=== PATIENT | male | born 1960 | race Caucasian/White ===

== ENCOUNTER 2018-12-31 14:01 | Emergency (ER) | payer SELFPAY ==
--- NOTE | 2018-12-31 14:59 | RAD ---
3 VIEWS LEFT ANKLE: Date: 12/31/18 HISTORY: Fall. Pain. COMPARISON: None. FINDINGS: Age-indeterminate small avulsive fracture at the level of the medial malleolus. No additional fractur es are appreciated. Ankle mortise is intact. Joint space appears to be preserved. Mild lateral soft t issue swelling. IMPRESSION: Indeterminate avulsive fracture of the medial malleolus. POS: OFF
== END 2018-12-31 15:35 | disposition home or self-care (01) ==
LOC: MADERS 14:01
DX: S82.52XA Displaced fracture of medial malleolus of left tibia, initial encounter for closed fracture (principal); W19.XXXA Unspecified fall, initial encounter